=== PATIENT | male | born 1955 | race Caucasian/White ===

== ENCOUNTER → 2019-07-01 | Outpatient (CLI) | payer SELFPAY ==
--- NOTE | 2019-07-02 18:23 | PCVCIMAG ---
APPROVED REPORT Study performed: 07/01/2019 13:22:59 EXAM: Comprehensive 2D, Doppler, and color-flow Echocardiogram Patient Location: Echo lab Status: routine BSA: 2.51 HR: 64 bpmBP: 116/62 mmHg Rhythm: NSR Other Information Study Quality: Adequate Risk Factors: Cardiac Risk Factors: HTN, Hyperlipidemia Indications Murmur obstructive sleep apnea 2D Dimensions IVSd: 14.47 (7-11mm)LVOT Diam: 22.98 (18-24mm) LVDd: 43.15 mm PWd: 12.91 (7-11mm)Ascending Ao: 36.92 (22-36mm) LVDs: 33.45 (25-40mm) Left Atrium: 43.01 (27-40mm) Aortic Root: 34.99 mm LV Single Plane 4CH: 60.17 % LV Single Plane 2CH: 64.82 % Biplane EF: 63.6 % Volumes Left Atrial Volume (Systole) Single Plane 4CH: 80.97 mLSingle Plane 2CH: 92.84 mL LA ESV Index: 36.00 mL/m2 Aortic Valve AoV Peak Garrett.: 2.79 m/s AO Peak Gr.: 28.93 mmHgLVOT Max P.48 mmHg AO Mean Gr.: 13.50 mmHgLVOT Mean P.59 mmHg AO V2 Mean: 1.69 m/sLVOT Max V: 1.86 m/s AO V2 VTI: 59.97 cmLVOT Mean V: 1.19 m/s MARILIN (VTI): 2.62 [id number] V1 VTI: 37.89 cm MARILIN Vmax: 2.77 cm2 SV (LVOT): 157.04 mL Mitral Valve E/A Ratio: 1.2 MV Decel. Time: 258.44 ms MV E Max Garrett.: 0.89 m/s MV A Garrett.: 0.76 m/s IVRT: 76.12 ms Pulmonary Valve PV Peak Garrett.: 1.32 m/sPV Peak Gr.: 7.02 mmHg Pulmonary Vein P Vein S: 0.30 m/sP Vein A: 0.35 m/s P Vein D: 0.43 m/sP Vein A Dur.: 152.2 msec P Vein S/D Ratio: 0.70 Tricuspid Valve TR Peak Garrett.: 2.66 m/s TR Peak Gr.: 28.20 mmHg Left Ventricle The left ventricle is normal size. There is normal LV segmental wall motion. Mild concentric left ventricular hypertrophy. Left ventricular systolic function is normal. The left ventricular ejection fraction is within the normal range. LVEF is 60-65%. Grade I - abnormal relaxation pattern. Right Ventricle The right ventricle is normal size. The right ventricular systolic function is normal. Atria Left atrium is mildly dilated. The right atrium size is normal. Aortic Valve Mild aortic valve sclerosis. Trace aortic regurgitation is present. Minimal aortic stenosis. Mild LVOT gradient present (LVOT garrett rest- 1.8 m/s and peak gradient 14 mmHg, LVOT w valsalva- pk garrett- 2.2 m/s and peak gradient 19 mmHg). Mitral Valve Mild posterior mitral annular calcification. Trace mitral regurgitation. No evidence of mitral valve stenosis. Tricuspid Valve The tricuspid valve is normal in structure. Mild tricuspid regurgitation with PAP of 35 mmHg. Pulmonic Valve The pulmonary valve is normal in structure. Trace pulmonic regurgitation. Great Vessels The aortic root is normal in size. IVC is normal in size and collapses >50% with inspiration. Pericardium There is no pericardial effusion. There is no pleural effusion. <Conclusion> The left ventricle is normal size. Mild concentric left ventricular hypertrophy. LVEF is 60-65%. Grade I - abnormal relaxation pattern. The right ventricle is normal size. Left atrium is mildly dilated. Mild aortic valve sclerosis. Trace aortic regurgitation is present. Minimal aortic stenosis. Mild LVOT gradient present (LVOT garrett rest- 1.8 m/s and peak gradient 14 mmHg, LVOT w valsalva- pk garrett- 2.2 m/s and peak gradient 19 mmHg). Mild posterior mitral annular calcification. Trace mitral regurgitation. Mild tricuspid regurgitation with PAP of 35 mmHg. The aortic root is normal in size. There is no pericardial effusion.
== END | disposition home or self-care (01) ==
LOC: PCVCIMAG 13:44
PROVIDERS: ATTEND Family Medicine
DX: I08.0 Rheumatic disorders of both mitral and aortic valves (principal); R01.1 Cardiac murmur, unspecified; G47.33 Obstructive sleep apnea (adult) (pediatric)
CPT/HCPCS: 93306